=== PATIENT | female | born 1940 | race Caucasian/White ===

== ENCOUNTER 2019-02-22 22:51 | Inpatient (IN) | payer MEDICAID ==
[~2019-02-22] VITALS: Ht 157.5 cm; Wt 78.9 kg
[2019-02-22] MEDS ORDERED: SODIUM CHLORIDE 0.9% 1,000 ML IV ONE (23:50)
[2019-02-23 00:11] LABS: BASOPHILS % 0.8 % (0.0-2.0); EOSINOPHILS % 1.5 % (0.0-5.0); LYMPHOCYTES % 26.6 % (20.0-50.0); MEAN CORPUSCULAR VOLUME 92.9 fL (81.0-99.0); MEAN PLATELET VOLUME 7.5 fl (7.4-10.4); NEUTROPHILS % 64.1 % (40.0-76.0); PLATELET 266 x1000/uL (130-400); RED BLOOD CELL COUNT 3.77 mill/uL (4.2-5.4); RED CELL DISTRIBUTION WIDTH 12.6 % (11.6-14.6)
[2019-02-23 00:18] LABS: CHLORIDE 98 mEq/L (98-107)
[2019-02-23] MEDS ORDERED: CEFTRIAXONE 1 G PREMIX 50 ML IV ONE (02:15)
[2019-02-23] MEDS ORDERED: AZITHROMYCIN 500 MG in DEXT 5% WATER 250 ML IV ONE (02:15)
[2019-02-23 05:18] VITALS: BP 146/75
[2019-02-23] MEDS ORDERED: ONDANSETRON HCL 4MG/2ML INJ IV PRN (07:00)
[2019-02-23] MEDS ORDERED: MAGNESIUM/ALUMINUM HYDROXIDE/SIMETHICONE 30ML UDC PO PRN (07:00)
[2019-02-23] MEDS ORDERED: GUAIFENESIN 200MG/10ML SUGAR FREE UDC PO PRN (07:00)
[2019-02-23] MEDS ORDERED: CLONIDINE 0.1MG TABLET PO PRN (07:00)
[2019-02-23] MEDS ORDERED: ACETAMINOPHEN 325MG TABLET PO PRN (07:00)
[2019-02-23] MEDS ORDERED: HYDROCODONE/ACETAMINOPHEN 5/325MG TABLET PO PRN (07:00)
[2019-02-23] MEDS ORDERED: DOCUSATE SODIUM 100MG CAPSULE PO PRN (07:00)
[2019-02-23] MEDS ORDERED: IPRATROPIUM/ALBUTEROL 0.5-3(2.5)MG/3ML NEB INH PRN (07:00)
[2019-02-23] MEDS ORDERED: DEXTROSE 50% WATER 50ML SYRINGE IV PRN (07:45)
[2019-02-23] MEDS: INSULIN LISPRO 100 UNITS/ML SUBCUT SCH ×4 (07:50→20:33)
[2019-02-23] MEDS: AMLODIPINE 10MG TABLET PO SCH (08:21)
[2019-02-23] MEDS: ENOXAPARIN 40MG/0.4ML SYR SUBCUT SCH (11:20)
[2019-02-23] MEDS: PIPERACILLIN/TAZ 3.375G PREMIX 50 ML IV SCH ×2 (11:20→18:09)
[2019-02-23 11:25] VITALS: BP 113/64
[2019-02-23] MEDS: BLOOD SUGAR DIAGNOSTIC STRIP TEST SCH ×3 (12:38→20:33)
[2019-02-23 13:49] VITALS: BP 132/69
[2019-02-23] MEDS ORDERED: PNEUMOCOCCAL 23-VAL P-SAC VAC 0.5 ML IM ONE (14:45)
[2019-02-23] MEDS ORDERED: HYDROCHLOROTHIAZIDE 25MG TABLET PO NR (14:45)
[2019-02-23] MEDS ORDERED: CAND1TAB14 PO (14:51)
[2019-02-23] MEDS ORDERED: BIPERIDEN (14:51)
[2019-02-23] MEDS ORDERED: BISO5TAB13 PO (14:51)
[2019-02-23] MEDS ORDERED: METF-415 PO (14:51)
[2019-02-23] MEDS ORDERED: ADEPSIQUE (14:51)
[2019-02-23] MEDS ORDERED: CHLO50TA PO (14:51)
[2019-02-23 15:26] VITALS: BP 120/59
[2019-02-23 15:55] LABS: CREATINE KINASE 31 IU/L (26-192)
[2019-02-23 20:38] VITALS: BP 121/69
[2019-02-24] VITALS: BP 116/58
[2019-02-24] MEDS: PIPERACILLIN/TAZ 3.375G PREMIX 50 ML IV SCH ×2 (01:11→10:59)
[2019-02-24 04:00] VITALS: BP 105/58
[2019-02-24] MEDS: BLOOD SUGAR DIAGNOSTIC STRIP TEST SCH (07:17)
[2019-02-24 07:20] LABS: CHLORIDE 107 mEq/L (98-107)
[2019-02-24] MEDS: INSULIN LISPRO 100 UNITS/ML SUBCUT SCH (07:25)
[2019-02-24 08:00] VITALS: BP 130/70
[2019-02-24] MEDS ORDERED: HYDROCHLOROTHIAZIDE 25MG TABLET PO SCH (09:00)
[2019-02-24] MEDS: AMLODIPINE 10MG TABLET PO SCH (09:35)
[2019-02-24] MEDS: ENOXAPARIN 40MG/0.4ML SYR SUBCUT SCH (09:36)
[2019-02-24 10:12] VITALS: BP 130/70
== END 2019-02-24 12:00 | disposition home or self-care (01) | DRG 133 ==
LOC: ER 22:51 → 6WST 02-23 02:40 → EDBEDREQTM 02-23 02:42 → EDBEDREQSVC 02-23 02:42 → EDBEDREQ 02-23 02:42 → ENRESERV 02-23 03:57 → 6WST 02-23 06:10
PROVIDERS: ADMIT Hospitalist; ATTEND Hospitalist
DX: J96.00 Acute respiratory failure, unspecified whether with hypoxia or hypercapnia (principal); J18.9 Pneumonia, unspecified organism; I50.43 Acute on chronic combined systolic (congestive) and diastolic (congestive) heart failure; E87.0 Hyperosmolality and hypernatremia; E87.2 Acidosis; E11.40 Type 2 diabetes mellitus with diabetic neuropathy, unspecified; I11.0 Hypertensive heart disease with heart failure; E78.00 Pure hypercholesterolemia, unspecified; E87.1 Hypo-osmolality and hyponatremia; E78.5 Hyperlipidemia, unspecified; Z79.899 Other long term (current) drug therapy; Z79.84 Long term (current) use of oral hypoglycemic drugs
CPT/HCPCS: 36415; 71045; 80048; 82550; 82962; 83605; 83880; 84484; 90732; 93005; 93970; 96361; 96365; 96367; 97162; 99285; J0456; J0696; J1650; J2543; J7030; J7060